=== PATIENT | male | born 1960 | race Caucasian/White ===

== ENCOUNTER 2017-04-16 12:27 | Outpatient (CLI) | payer OTHER ==
[2017-04-16 13:24] LABS: #Basophils 0.1 thou/uL (0.0-0.2); #Eosinphils 0.2 thou/uL (0.0-0.7); #Lymphocytes 1.7 thou/uL (1.20-3.40); #Monocytes 0.5 thou/uL (0.11-0.59); #Neutrophils 3.5 thou/uL (1.40-6.50); %Basophils 1.1 % (0.0-1.0); %Eosinophils 3.6 % (0.0-10.0); %Lymphocytes 28.8 % (21.0-51.0); %Monocytes 7.8 % (0.0-10.0); Hematocrit 45.8 % (42.0-52.0); Mean Platelet Volume 8.3 fL (7.4-10.4); Red Blood Cell (RBC) Count 4.63 mill/uL (4.70-6.10); White Blood Cell (WBC) Count 5.9 thou/uL (4.8-10.8)
[2017-04-16 13:52] LABS: Anion Gap 11 mmol/L (10-20); BUN (Urea Nitrogen) 14 mg/dL (8.4-25.7); Calc. Creatinine Clearance 0 mL/min (70-130); Calcium 10.3 mg/dL (7.8-10.44); Carbon Dioxide 27 mmol/L (22-29); Chloride 104 mmol/L (98-107); Estimated GFR-MDRD 83
== END 2017-04-16 12:28 | disposition home or self-care (01) ==
LOC: LABBT 12:27
PROVIDERS: ATTEND Specialist
DX: Z01.812 Encounter for preprocedural laboratory examination (principal); K42.9 Umbilical hernia without obstruction or gangrene; L72.3 Sebaceous cyst
CPT/HCPCS: 80048; 85025

== ENCOUNTER 2017-04-18 07:45 | Day surgery (SDC) | payer OTHER ==
--- NOTE | 2017-04-13 16:54 | HP ---
HISTORY OF PRESENT ILLNESS: Bladimir Fan is a 56-year-old male who works as a [employer]. He has an umbilical hernia that is bothersome to him. He desires repair. Plan is to repair t his possibly using mesh. The patient also has a sebaceous cyst in his left chest nipple area. This has intermittent drainage, it is not infected. We will plan to excise this under the same anesthesia . TOBACCO: None. ALCOHOL: Rarely. ALLERGIES: Multiple, PENICILLIN rash. SIMVASTATIN, muscle aches. ERYTHROMYCIN, hives. SULFA, myal gias and rash. MEDROL DOSEPAK low blood pressure. NEXIUM, tachycardia and sweating, low energy. Z- EARNEST decreased blood pressure. CIPRO, ankle pain coinciding with this. He can take Ceclor without pr oblems. PAST MEDICAL HISTORY: Noncontributory. PAST SURGICAL HISTORY: Sinus surgery, soft tissue mass excised right chest in the past. MEDICATIONS: Lisinopril 2.5 mg as needed, Prilosec [id number] once a day, once a day vitamins, Zyrtec every day, CoQ 10 every day, Flomax 0.4 mg a day, pravastatin 20 mg a day. REVIEW OF SYSTEMS: Ten point noncontributory. PHYSICAL EXAMINATION: VITAL SIGNS: Weight 261 pounds, 77 inches, 137/84, 61, 98.3 degrees. HEENT: Unremarkable. LUNGS: Clear to auscultation. CARDIAC: Regular rate and rhythm without murmur or gallop. ABDOMEN: Soft. Umbilical hernia present, reducible, but promptly returns, small defect. EXTREMITIES: Unremarkable. CHEST: Lower left chest just above the inframammary area is a soft tissue nodule findings consistent with a sebaceous cyst. No signs of infection. ASSESSMENT AND PLAN: 1. Umbilical hernia. Will plan repair, possibly using mesh as an outpatient. He understands the ri sks and benefits and consents. 2. Sebaceous cyst soft tissue mass less chest, plan excision under the same anesthesia. 3. Multiple allergies. He can take the Ceclor without problems.
[2017-04-16 12:51] VITALS: BMI 29.2
[2017-04-18] MEDS ORDERED: Clindamycin/D5W 600 mg/50 ml Premix Bag ONE (09:05)
[2017-04-18] MEDS ORDERED: Bupivacaine/Epinephrine 0.25% 30 ML VIAL ONE ×2 (10:13→11:21)
[2017-04-18] MEDS ORDERED: Lidocaine 2% PF 5 ML VIAL ONE (10:13)
[2017-04-18] MEDS ORDERED: Fentanyl 250 MCG/5 ML VIAL ONE (11:05)
--- NOTE | 2017-04-18 12:35 | OP ---
DATE OF PROCEDURE: 04/18/2017 PREOPERATIVE DIAGNOSES: Umbilical hernia, painful symptomatic sebaceous cyst left inframammary area, upper abdomen and lower chest. POSTOPERATIVE DIAGNOSES: Umbilical hernia, painful symptomatic sebaceous cyst left inframammary area , upper abdomen and lower chest. PROCEDURE: Umbilical hernia repair with mesh 4.4 cm PVP mesh reinforcement of fascial closure. Exci ghazala of sebaceous cyst left inframammary area of 3 cm incision, layered closure. SURGEON: Dr. Isai Villanueva ANESTHESIA: General. Local 0.25% Marcaine with epinephrine, 30 mL, mixed with 1% Xylocaine with epi nephrine, 30 mL. PROCEDURE: The patient was taken to the operating room where under general anesthesia, abdomen was c lipped of hair, prepared with ChloraPrep, draped in routine fashion. Incision made below the umbilic us and carried down through the skin and subcutaneous tissue and an umbilical hernia preperitoneal fa t dissected free, excised and reduced. Preperitoneal fat cleared from the fascia. Good hemostasis n oted. Subcutaneous tissue free from the fascia superiorly and inferiorly. PVP mesh placed preperito ariadna, was controlled with the straps and the fascia approximated [id number] with interrupted sut ures of 0 PDS pop offs incorporating approximation of the mesh to the fascial closure. Subcutaneous tissues approximated with 3-0 Monocryl, skin with subdermal 4-0 Monocryl and DermaGlue applied. Loca l anesthetic infiltrated about wound for postoperative pain control. Sebaceous cyst, left upper abdomen inframammary left area excised transversely, excised ellipse of sk in 3 cm incision underlying subcutaneous tissue and cyst submitted to pathology. Hemostasis gained w ith cautery. Subcutaneous tissues approximated with 3-0 Monocryl, skin with subdermal 4-0 Monocryl a nd DermaGlue applied. The patient tolerated the procedure well.
[2017-04-18] MEDS ORDERED: Lidocaine 1% PF 5 ML VIAL ONE (15:43)
[2017-04-18] MEDS ORDERED: Ketorolac Tromethamine 30 MG/ML VIAL ONE (15:43)
[2017-04-18] MEDS ORDERED: Propofol 200 MG/20 ML VIAL ONE (15:43)
[2017-04-18] MEDS ORDERED: Dexamethasone 20 MG/5 ML VIAL ONE (15:43)
[2017-04-18] MEDS ORDERED: Glycopyrrolate 0.2 MG/ML 5 ML SYRINGE ONE (15:43)
[2017-04-18] MEDS ORDERED: Ondansetron HCl/PF 4 MG/2 ML Vial ONE (15:43)
== END 2017-04-18 14:31 | disposition home or self-care (01) ==
LOC: SDC 07:45
PROVIDERS: ATTEND Specialist
PROC: 0HB5XZZ Excision of Chest Skin, External Approach (ICD-10-PCS; principal; 2017-04-18)
PROC: 0HB7XZZ Excision of Abdomen Skin, External Approach (ICD-10-PCS; principal; 2017-04-18)
PROC: 0WUF0JZ Supplement Abdominal Wall with Synthetic Substitute, Open Approach (ICD-10-PCS; principal; 2017-04-18)
PROC: 0HBUXZZ (ICD-10-PCS; principal; 2017-04-18)
DX: K42.9 Umbilical hernia without obstruction or gangrene (principal); L72.0 Epidermal cyst; Z88.1 Allergy status to other antibiotic agents; Z88.0 Allergy status to penicillin; Z88.2 Allergy status to sulfonamides; Z88.8 Allergy status to other drugs, medicaments and biological substances
CPT/HCPCS: 88304; C1781; J0131; J1100; J1885; J2001; J2405; J2704; J3010; J3490

== ENCOUNTER 2018-05-29 12:00 | Outpatient (CLI) | payer BC ==
--- NOTE | 2018-05-29 14:31 | ULT ---
SCROTAL SONOGRAM WITH DUPLEX EVALUATION: History: Left scrotal pain. FINDINGS: Right testicle is 3.9 cm and left is 3.9 cm. Each has a normal sonographic appearance with good color and spectral doppler flow. Nondilated venous structures are seen within the left side of the scrotum without significant engorgement upon valsalva maneuver. IMPRESSION: No evidence of testicular mass or torsion. No significant abnormalities demonstrated. POS: SWAPNA
== END 2018-05-29 12:01 | disposition home or self-care (01) ==
LOC: BICULT 12:00
PROVIDERS: ATTEND Urology
DX: N50.812 Left testicular pain (principal)
CPT/HCPCS: 76870; 93976

== ENCOUNTER 2018-10-19 12:13 | Emergency (ER) | payer BC ==
[2018-10-19 12:58] LABS: #Basophils 0.1 thou/uL (0.0-0.2); #Eosinphils 0.1 thou/uL (0.0-0.7); #Lymphocytes 1.2 thou/uL (1.20-3.40); #Monocytes 0.6 thou/uL (0.11-0.59); #Neutrophils 8.6 thou/uL (1.40-6.50); %Basophils 0.6 % (0.0-1.0); %Eosinophils 0.9 % (0.0-10.0); %Monocytes 5.6 % (0.0-10.0); %Neutrophils 81.9 % (42.0-75.0); Hemoglobin 15.4 g/dL (14.0-18.0); Mean Corpuscular HGB CONC 33.9 g/dL (32.0-36.0); Mean Corpuscular Hemoglobin 32.6 pg (27.0-31.0); Mean Corpuscular Volume 96.1 fL (78.0-98.0); Mean Platelet Volume 7.6 fL (7.4-10.4); Platelet Count 232 thou/uL (130-400); RBC Distribution Width 11.6 % (11.5-14.5); Red Blood Cell (RBC) Count 4.74 mill/uL (4.70-6.10); White Blood Cell (WBC) Count 10.4 thou/uL (4.8-10.8)
[2018-10-19 13:21] LABS: ALT (SGPT) 27 U/L (8-55); AST (SGOT) 21 U/L (5-34); Albumin 4.6 g/dL (3.5-5.0); Alkaline Phosphatase 63 U/L (40-150); Anion Gap 13 mmol/L (10-20); BUN (Urea Nitrogen) 16 mg/dL (8.4-25.7); Bilirubin, Total 0.7 mg/dL (0.2-1.2); CK (CPK) 125 U/L (30-200); Calc. Creatinine Clearance 0 mL/min (70-130); Calcium 10.6 mg/dL (7.8-10.44); Carbon Dioxide 26 mmol/L (22-29); Chloride 104 mmol/L (98-107); Estimated GFR-MDRD 64; Glucose 110 mg/dL (70-105); Lipase 26 U/L (8-78); Potassium 4.8 mmol/L (3.5-5.1); Protein, Total 7.6 g/dL (6.0-8.3); Sodium 138 mmol/L (136-145)
--- NOTE | 2018-10-19 13:35 | RAD ---
XR Chest Pa Lat STANDARD History: [Chest pain] Comparison: None. Findings: Lungs are clear. Increased pericardial fat. No pneumothorax. No effusion. No acute osseous abnormality. Impression: No acute intrathoracic abnormality.
== END 2018-10-19 15:50 | disposition home or self-care (01) ==
LOC: ERS 12:13
DX: J32.9 Chronic sinusitis, unspecified (principal); R42 Dizziness and giddiness; E78.5 Hyperlipidemia, unspecified; I10 Essential (primary) hypertension; K21.9 Gastro-esophageal reflux disease without esophagitis; Z79.899 Other long term (current) drug therapy
CPT/HCPCS: 36415; 71046; 80053; 82550; 83690; 84484; 85025; 93005

== ENCOUNTER 2023-03-08 12:36 | Outpatient (CLI) | payer BC | END 2023-03-08 12:37 | disposition home or self-care (01) | LOC: SCSMRI 12:36 | PROVIDERS: ATTEND Family Medicine | DX: M47.26 Other spondylosis with radiculopathy, lumbar region (principal); M48.061 Spinal stenosis, lumbar region without neurogenic claudication; M51.27 Other intervertebral disc displacement, lumbosacral region | CPT/HCPCS: 72148 ==

== ENCOUNTER 2024-12-29 09:15 | Outpatient (CLI) | payer MEDICARE, OTHER | END 2024-12-29 09:16 | disposition home or self-care (01) | LOC: BICCT 09:15 | PROVIDERS: ATTEND Internal Medicine Cardiovascular Disease | DX: I77.810 Thoracic aortic ectasia (principal) | CPT/HCPCS: 71250 ==